=== PATIENT | male | born 2005 | race Caucasian/White ===

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

== ENCOUNTER 2023-09-10 08:21 | Outpatient (CLI) | payer BC, SELFPAY ==
[2023-09-10 12:30] LABS: Calculated LDL 133 mg/dL (<100); Cholesterol 198 mg/dL (<200); HDL Cholesterol 44 mg/dL (40-60); Triglyceride 108 mg/dL (<150)
[2023-09-10 12:35] LABS: Hemoglobin A1C 5.3 % (<5.7)
== END 2023-09-10 08:22 | disposition home or self-care (01) ==
LOC: LOS 08:22
PROVIDERS: PCP Nurse Practitioner Family; Referring Provider Nurse Practitioner Family; Visit Provider Nurse Practitioner Family
DX: Z13.1 Encounter for screening for diabetes mellitus (principal); Z13.220 Encounter for screening for lipoid disorders
CPT/HCPCS: 36415; 80061; 83036

== ENCOUNTER 2024-05-22 12:53 | Outpatient (REF) | payer BC, SELFPAY | END 2024-05-22 12:54 | disposition home or self-care (01) | LOC: LBN 12:53 | PROVIDERS: PCP Nurse Practitioner Family; Visit Provider Nurse Practitioner Family | DX: J02.9 Acute pharyngitis, unspecified (principal); J06.9 Acute upper respiratory infection, unspecified | CPT/HCPCS: 87070 ==